=== PATIENT | female | born 1955 | race Caucasian/White ===

== ENCOUNTER 2016-12-30 17:21 | Emergency (ER) | payer MEDICAID ==
--- NOTE | 2016-12-30 18:01 | EDM.PDOC ---
ED HPI GENERAL MEDICAL PROBLEM - General Chief Complaint: General Stated Complaint: sob Time Seen by Provider: 12/30/16 17:33 Source of Information: Reports: Patient, EMS - History of Present Illness INITIAL COMMENTS - FREE TEXT/NARRATIVE: Patient presents to ER by ambulance stating she has severe nasal congestion, got hot and became sob for a few minutes. she denies sob now and states she still has nasal congestion. 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 - Related Data Allergies Allergy/AdvReac Type Severity Reaction Status Date / Time cephalexin Allergy Itching Verified 04/26/16 14:43 Home Meds: Home Meds FLUoxetine [PROzac] 20 mg PO BEDTIME 10/12/15 [History] Lisinopril [Zestril] 40 mg PO DAILY 10/12/15 [History] Lovastatin 20 mg PO DAILY 10/12/15 [History] Metoprolol Tartrate [Lopressor] 50 mg PO BEDTIME 10/12/15 [History] Omeprazole 20 mg PO DAILY 10/12/15 [History] Warfarin [Coumadin] 4 mg PO DAILY 10/12/15 [History] metFORMIN HCl [Metformin HCl] 1,000 mg PO BID 10/12/15 [History] Amoxicillin/Clavulanate K [Augmentin 875 MG/125 MG] 1 tab PO Q12HR #20 tablet [Rx] Ferrous Sulfate [Iron] 325 mg PO BID #60 tablet 04/29/16 [Rx] Past Medical History Cardiovascular History: Reports: High Cholesterol, Hypertension Genitourinary History: Reports: Renal Calculus Endocrine/Metabolic History: Reports: Diabetes, Type II - Past Surgical History HEENT Surgical History: Reports: Tonsillectomy GI Surgical History: Reports: Cholecystectomy Female Surgical History: Reports: Hysterectomy, Kidney stone extraction, Oophorectomy Social & Family History - Family History Family Medical History: Noncontributory Cardiac: Reports: CAD, Hypertension Endocrine/Metabolic: Reports: Diabetes, type II - Tobacco Use Smoking Status *Q: Current Every Day Smoker Years of Tobacco use: 40 Packs/Tins Daily: 0.5 - Living Situation & Occupation Living situation: Reports: with Family ED ROS GENERAL - Review of Systems Review Of Systems: ROS reveals no pertinent complaints other than HPI. ED EXAM, GENERAL - Physical Exam Exam: See Below Free Text/Narrative:: I find no abnormalities ENT, and BBS are clear. She is a-febrile and has no real complaints at this time. Exam Limited By: No Limitations General Appearance: Alert, WD/WN Ears: Normal External Exam, Normal Canal, Normal TMs Nose: Normal Inspection Throat/Mouth: Normal Inspection Head: Atraumatic Neck: Normal Inspection Respiratory/Chest: No Respiratory Distress, Lungs Clear, Normal Breath Sounds Cardiovascular: Normal Peripheral Pulses GI/Abdominal: Normal Bowel Sounds Back Exam: Normal Inspection Extremities: Normal Inspection Neurological: Alert, Oriented Skin Exam: Warm, Dry Course - Vital Signs Last Recorded V/S: Last Vital Signs Temp 98.9 F 12/30/16 17:33 Pulse 88 12/30/16 17:33 Resp 20 12/30/16 17:33 BP 158/85 H 12/30/16 17:33 Pulse Ox 96 12/30/16 17:33 Departure - Departure Time of Disposition: 18:00 Disposition: Home, Self-Care 01 Condition: Good Clinical Impression: Nasal sinus congestion - Discharge Information Forms: ED Department Discharge Additional Instructions: Take medications as prescribed, follow up with your regular doctor Monday as needed.
== END 2016-12-30 18:21 | disposition home or self-care (01) ==
LOC: CC.ED 17:21
CPT/HCPCS: 99284

== ENCOUNTER 2017-03-19 07:48 | Observation (INO) | payer MEDICAID ==
[2017-03-19] MEDS ORDERED: fentaNYL 100 MCG/2 ML SDV IM ONE (08:08)
--- NOTE | 2017-03-19 08:46 | EDM.PDOC ---
ED HPI GENERAL MEDICAL PROBLEM - General Chief Complaint: Genitourinary Problem Stated Complaint: right flank pain Time Seen by Provider: 03/19/17 08:28 Source of Information: Reports: Patient History Limitations: Reports: No Limitations - History of Present Illness INITIAL COMMENTS - FREE TEXT/NARRATIVE: Patient presents with right flank pain that radiate to the right lower quadrant. Describes as a burning sensation. Started yesterday afternoon in the flank area but now has radiated. She has a history of kidney stones but states the pain was more localized in to one place at that time. Mild nausea and dry heaves. Denies burning with urination, no hematuria. Denies diarrhea or constipation. Has had a cold recently, coughing at times. No fevers. Mild sinus congestion and chest congestion. No shortness of breath or chest pain. Onset: Gradual Duration: Day(s):, Colic, Getting Worse Location: Reports: Abdomen Quality: Reports: Burning Severity: Severe Associated Symptoms: Reports: Cough, Nausea/Vomiting. Denies: Chest Pain, Fever /Chills, Loss of Appetite, Shortness of Breath Right Flank Pain Score (Numeric/FACES): 10 - Related Data Allergies Allergy/AdvReac Type Severity Reaction Status Date / Time cephalexin Allergy Itching Verified 03/19/17 07:53 Home Meds: Home Meds FLUoxetine [PROzac] 40 mg PO BEDTIME 10/12/15 [History] Lisinopril [Zestril] 40 mg PO DAILY 10/12/15 [History] Lovastatin 20 mg PO DAILY 10/12/15 [History] Metoprolol Tartrate [Lopressor] 50 mg PO BEDTIME 10/12/15 [History] Omeprazole 20 mg PO DAILY 10/12/15 [History] Warfarin [Coumadin] 4 mg PO DAILY 10/12/15 [History] metFORMIN HCl [Metformin HCl] 1,000 mg PO BID 10/12/15 [History] Ferrous Sulfate [Iron] 325 mg PO BID #60 tablet 04/29/16 [Rx] Enoxaparin Sodium [Lovenox] 150 mg SUBCUT BID 03/19/17 [History] Hydrocortisone 5 mg PO 1400 03/19/17 [History] Hydrocortisone 10 mg PO DAILY 03/19/17 [History] Levothyroxine 75 mcg PO DAILY 03/19/17 [History] amLODIPine [Norvasc] 5 mg PO DAILY 03/19/17 [History] glipiZIDE [Glucotrol XL] 5 mg PO DAILY 03/19/17 [History] guaiFENesin/Codeine Phosphate [Cheratussin AC Syrup] 5 - 10 ml PO Q6H PRN [History] Past Medical History Cardiovascular History: Reports: High Cholesterol, Hypertension Genitourinary History: Reports: Renal Calculus Endocrine/Metabolic History: Reports: Diabetes, Type II - Past Surgical History HEENT Surgical History: Reports: Tonsillectomy GI Surgical History: Reports: Cholecystectomy Female Surgical History: Reports: Hysterectomy, Kidney stone extraction, Oophorectomy Social & Family History - Family History Family Medical History: Noncontributory Cardiac: Reports: CAD, Hypertension Endocrine/Metabolic: Reports: Diabetes, type II - Tobacco Use Smoking Status *Q: Never Smoker Years of Tobacco use: 40 Packs/Tins Daily: 0.5 - Caffeine Use Caffeine Use: Reports: None - Living Situation & Occupation Living situation: Reports: with Family ED ROS GENERAL - Review of Systems Review Of Systems: See Below Constitutional: Denies: Fever, Chills, Malaise, Weakness, Decreased Appetite HEENT: Reports: Rhinitis. Denies: Ear Pain, Throat Pain Respiratory: Reports: Pleuritic Chest Pain, Cough. Denies: Shortness of Breath Cardiovascular: Reports: Edema. Denies: Chest Pain, Lightheadedness Endocrine: Reports: Fatigue GI/Abdominal: Reports: Abdominal Pain, Nausea. Denies: Constipation, Diarrhea, Vomiting : Reports: Flank Pain. Denies: Hematuria Musculoskeletal: Reports: No Symptoms Skin: Reports: Erythema (to skin folds, has cream to put in them) Neurological: Reports: No Symptoms ED EXAM, GI/ABD - Physical Exam Exam: See Below Exam Limited By: No Limitations General Appearance: Alert, WD/WN, Mild Distress Ears: Normal External Exam, Normal TMs Nose: Normal Inspection, Nasal Drainage Throat/Mouth: Normal Inspection, Normal Oropharynx Head: Normocephalic Neck: Normal Inspection, Supple, Non-Tender Respiratory/Chest: No Respiratory Distress, Lungs Clear Cardiovascular: Irregularly Irregular GI/Abdominal Exam: Normal Bowel Sounds, Soft, Tender (RLQ) Extremities: Redness (to left leg skin fold, moist) Neurological: Alert, Oriented Psychiatric: Normal Affect, Normal Mood Skin Exam: Warm, Dry Course - Vital Signs Last Recorded V/S: Last Vital Signs Temp 97.0 F 03/19/17 07:51 Pulse 98 03/19/17 07:51 Resp 20 03/19/17 07:51 BP 105/56 L 03/19/17 07:51 Pulse Ox 96 03/19/17 07:51 - Orders/Labs/Meds Orders: Active Orders 24 hr Category Date Time Status Abdomen Pelvis wo Cont [CT] Stat Exams 03/19/17 10:12 Taken CULTURE URINE [RM] Stat Lab 03/19/17 10:16 Received Sodium Chloride 0.45% 1,000 ml Med 03/19/17 09:15 Active IV ASDIRECTED Medication Orders Sodium Chloride (Sodium Chloride 0.45%) 1,000 mls @ 150 mls/hr IV ASDIRECTED ANTONIO Labs: Laboratory Tests 03/19/17 03/19/17 03/19/17 Range/Units 09:52 09:56 10:16 WBC 15.8 H (5.0-10.0) 10^3/uL RBC 4.34 (4.00-5.50) 10^6/uL Hgb 11.0 L (12.0-16.0) g/dL Hct 37.6 (37.0-47.0) % MCV 86.6 (82.0-94.0) fL MCH 25.3 L (27.0-32.0) pg MCHC 29.3 L (33.0-38.0) g/dL RDW Coeff of Jaron 18.1 H (11.0-15.0) % Plt Count 413 H (150-400) 10^3/uL Add Manual Diff Yes Neutrophils % (Manual) 76 (35-85) % Band Neutrophils % 5 (0-5) % Lymphocytes % (Manual) 13 L (21-55) % Monocytes % (Manual) 5 (2-12) % Eosinophils % (Manual) 1 (0-5) % Absolute Neutrophils 12.80 H (1.80-7.00) 10^3/uL Lymphocytes # (Manual) 2.05 (1.00-4.80) 10^3/uL Monocytes # (Manual) 0.79 (0.00-0.80) 10^3/uL Eosinophils # (Manual) 0.16 (0.00-0.45) 10^3/uL Sodium 140 (136-145) mEq/L Potassium 4.1 (3.5-5.0) mEq/L Chloride 101 (98-106) mEq/L Carbon Dioxide 28 (21-32) mmol/L BUN 13 (7-18) mg/dL Creatinine 1.4 H D (0.6-1.0) mg/dL Est Cr Clr Drug Dosing 42.98 mL/min Estimated GFR (MDRD) 38 L (>=60) mL/min Glucose 260 H (75-99) mg/dL Calcium 9.0 (8.4-10.1) mg/dL Total Bilirubin 0.7 (0.0-1.0) mg/dL AST 23 (15-37) U/L ALT 40 (12-78) U/L Alkaline Phosphatase 103 (46-116) U/L C-Reactive Protein 1.7 H (0.2-0.8) mg/dL Total Protein 7.5 (6.4-8.2) g/dL Albumin 3.0 L (3.4-5.0) g/dL Amylase 27 (25-115) U/L Urine Color Dark yellow (YELLOW) Urine Appearance Clear (CLEAR) Urine pH 5.5 (4.5-8.0) Ur Specific [place] >= 1.030 H (1.003-1.020) Urine Protein >=300 H (NEGATIVE) mg/dL Urine Glucose (UA) 100 H (NEGATIVE) mg/dL Urine Ketones Trace H (NEGATIVE) mg/dL Urine Occult Blood Moderate H (NEGATIVE) Urine Nitrite Positive H (NEGATIVE) Urine Bilirubin Small H (NEGATIVE) Urine Urobilinogen 1.0 (0.2-1.0) EU/dL Ur Leukocyte Esterase Small H (NEGATIVE) Meds: Medications Generic Name Dose Route Start Last Admin Trade Name Freq PRN Reason Stop Dose Admin Sodium Chloride 1,000 mls @ 150 mls/hr 03/19/17 09:15 Sodium Chloride 0.45% IV ASDIRECTED ANTONIO Discontinued Medications Generic Name Dose Route Start Last Admin Trade Name Freq PRN Reason Stop Dose Admin Fentanyl 50 mcg 03/19/17 08:08 03/19/17 08:11 Sublimaze IM 03/19/17 08:09 50 mcg ONETIME ONE Administration Fentanyl 50 mcg 03/19/17 09:24 03/19/17 09:41 Sublimaze IVPUSH 03/19/17 09:25 50 mcg ONETIME ONE Administration - Re-Assessments/Exams Free Text/Narrative Re-Assessment/Exam: 03/19/17 11:23 Patient's labs reviewed. WBC elevated, CRP 1.7. Urine positive. Still having complaints of significant pain at times. Will admit for IV fluids, pain meds and antibiotics. Still awaiting CT report to rule out stone due to hematuria and pain. Departure - Departure Time of Disposition: 11:24 Disposition: Refer to Observation Condition: Fair Clinical Impression: Pyelonephritis - Discharge Information Forms: ED Department Discharge - Problem List & Annotations (1) Pyelonephritis SNOMED Code(s): 74200415 Code(s): N12 - TUBULO-INTERSTITIAL NEPHRITIS, NOT SPCF ACUTE OR CHRONIC Status: Acute Priority: High Current Visit: Yes - Problem List Review Problem List Initiated/Reviewed/Updated: Yes - My Orders Last 24 Hours: My Active Orders 03/19/17 09:15 Sodium Chloride 0.45% 1,000 ml IV ASDIRECTED 03/19/17 10:12 Abdomen Pelvis wo Cont [CT] Stat 03/19/17 10:16 CULTURE URINE [RM] Stat - Assessment/Plan Admission H&P: Please use this note as an admission H&P Last 24 Hours: My Active Orders 03/19/17 09:15 Sodium Chloride 0.45% 1,000 ml IV ASDIRECTED 03/19/17 10:12 Abdomen Pelvis wo Cont [CT] Stat 03/19/17 10:16 CULTURE URINE [RM] Stat Assessment:: Pyelonephritis Plan: ADmit observation to Dr. Zhang for pyelonephritis. Start IV Levaquin and fluids. Pain meds.
[2017-03-19] MEDS ORDERED: Sodium Chloride 0.45% 1,000 ML IV SCH (09:15)
[2017-03-19] MEDS ORDERED: fentaNYL 100 MCG/2 ML SDV IVPUSH ONE (09:24)
[2017-03-19] MEDS ORDERED: Ondansetron 4 MG/2 ML SDV IV PRN (11:37)
[2017-03-19] MEDS ORDERED: Ondansetron 4 MG Tab.DIS PO PRN (11:37)
[2017-03-19] MEDS ORDERED: fentaNYL 100 MCG/2 ML SDV IVPUSH PRN (11:37)
[2017-03-19] MEDS ORDERED: Sodium Chloride 0.9% 10 ML Syringe FLUSH PRN (11:37)
[2017-03-19] MEDS ORDERED: Temazepam 15 MG Cap PO PRN (11:37)
[2017-03-19] MEDS ORDERED: Acetaminophen/HYDROcodone 325-5 MG Tab PO PRN (11:37)
[2017-03-19] MEDS ORDERED: glipiZIDE 5 MG Tab.ER PO SCH (11:45)
[2017-03-19] MEDS ORDERED: amLODIPine 2.5 MG Tab PO SCH (12:00)
[2017-03-19] MEDS ORDERED: Ferrous Sulfate 324 MG Tab.EC PO SCH (12:00)
[2017-03-19] MEDS ORDERED: Pantoprazole 40 MG Vial IVPUSH SCH (12:00)
[2017-03-19] MEDS ORDERED: Levofloxacin/Dextrose 5%-Water 500 MG in Premix Bag 1 BAG IV SCH (12:00)
[2017-03-19] MEDS ORDERED: Levothyroxine 50 MCG Tab PO SCH (12:00)
[2017-03-19] MEDS ORDERED: fentaNYL 100 MCG/2 ML SDV ONE (12:09)
[2017-03-19] MEDS ORDERED: Lisinopril 20 MG Tab PO SCH (12:15)
[2017-03-19] MEDS ORDERED: Hydrocortisone 20 MG Tab PO SCH ×2 (12:15→14:00)
[2017-03-19 12:32] VITALS: BP 153/73
[2017-03-19] MEDS ORDERED: metFORMIN 500 MG Tab PO SCH (17:30)
[2017-03-19] MEDS ORDERED: FLUoxetine 20 MG Cap PO SCH (20:00)
[2017-03-19] MEDS ORDERED: Enoxaparin 80 MG/0.8 ML Syringe SUBCUT SCH (20:00)
[2017-03-19] MEDS ORDERED: Metoprolol Tartrate 50 MG Tab PO SCH (20:00)
[2017-03-19] MEDS ORDERED: Simvastatin 10 MG Tab PO SCH (20:00)
--- NOTE | 2017-03-20 19:57 | PCM.DCSUM1 ---
Discharge Summary - Hospital Course Free Text/Narrative:: Patient was admitted from ED due for right flank pain/abdominal pain. UA was positive, WBC elevated at 15.9. CT scan done upon admit due to hematuria and known history of kidney stones. Patient had been experiencing pain in the right flank and right lower quadrant, describes as burning. She had been nauseated, no vomiting. Admits to burning with urination. ADmitted for IV antibiotics and fluids. Currently on high dose Lovenox as Coumadin was held to prepare for a thyroid biopsy. - Discharge Data Discharge Date: 03/19/17 Discharge Disposition: DC/Tfer to Acute Hospital 02 Condition: Undetermined - Discharge Diagnosis/Problem(s) (1) Pyelonephritis SNOMED Code(s): 00468539 ICD Code: N12 - TUBULO-INTERSTITIAL NEPHRITIS, NOT SPCF ACUTE OR CHRONIC Status: Acute Priority: High (2) Intra-abdominal hematoma SNOMED Code(s): 345771600 ICD Code: S36.92XA - CONTUSION OF UNSPECIFIED INTRA-ABDOMINAL ORGAN, INIT ENCNTR Status: Acute Priority: High Qualifiers: Encounter type: initial encounter Qualified Code(s): S36.92XA - Contusion of unspecified intra-abdominal organ, initial encounter - Patient Summary/Data Complications: CT report showed a large hematoma to the rectus muscle sheath extending down to the pelvis. Hospital Course: Admitted to observation. Received radiology read that showed a large hematoma in the rectus sheath extending to the pelvis. She had been giving herself Lovenox shots while holding her Coumadin for a thyroid biopsy. Did contact surgeon at [facility] who accepted patient for surgical evaluation, monitoring of the bleed and [employer] pain meds. - Discharge Plan Home Medications: Home Meds FLUoxetine [PROzac] 40 mg PO BEDTIME 10/12/15 [History] Lisinopril [Zestril] 40 mg PO DAILY 10/12/15 [History] Lovastatin 20 mg PO DAILY 10/12/15 [History] Metoprolol Tartrate [Lopressor] 50 mg PO BEDTIME 10/12/15 [History] Omeprazole 20 mg PO DAILY 10/12/15 [History] Warfarin [Coumadin] 4 mg PO DAILY 10/12/15 [History] metFORMIN HCl [Metformin HCl] 1,000 mg PO BID 10/12/15 [History] Ferrous Sulfate [Iron] 325 mg PO BID #60 tablet 04/29/16 [Rx] Enoxaparin Sodium [Lovenox] 150 mg SUBCUT BID 03/19/17 [History] Hydrocortisone 5 mg PO 1400 03/19/17 [History] Hydrocortisone 10 mg PO DAILY 03/19/17 [History] Levothyroxine 75 mcg PO DAILY 03/19/17 [History] amLODIPine [Norvasc] 5 mg PO DAILY 03/19/17 [History] glipiZIDE [Glucotrol XL] 5 mg PO DAILY 03/19/17 [History] guaiFENesin/Codeine Phosphate [Cheratussin AC Syrup] 5 - 10 ml PO Q6H PRN [History] Forms: ED Department Discharge Referrals: Raffaele Ortiz PA-C [Family Provider] - - Discharge Summary/Plan Comment DC Time >30 min.: Yes Discharge Summary/Plan Comment: Transfer ALS to [facility] for surgical evaluation. - General Info Date of Service: 03/20/17 Admission Dx/Problem (Free Text: Hematoma to RLQ rectus sheath Functional Status: Denies: Pain Controlled (ongoing fentanyl given) - Review of Systems General: Reports: Fatigue. Denies: Fever HEENT: Reports: No Symptoms Pulmonary: Reports: Cough. Denies: Shortness of Breath Cardiovascular: Reports: Edema. Denies: Chest Pain, Lightheadedness Gastrointestinal: Reports: Abdominal Pain, Nausea. Denies: Vomiting Genitourinary: Reports: No Symptoms Musculoskeletal: Reports: No Symptoms Skin: Reports: Other (redness noted to left leg fold with moisture and odor noted.) Neurological: Reports: No Symptoms - Patient Data Vitals - Most Recent: Last Vital Signs Temp 98.3 F 03/19/17 11:37 Pulse 87 03/19/17 11:37 Resp 20 03/19/17 11:37 BP 153/73 H 03/19/17 11:37 Pulse Ox 94 L 03/19/17 11:37 Weight - Most Recent: 359 lb 11.2 oz Med Orders - Current: Current Medications Discontinued Medications Hydrocodone Bitart/Acetaminophen ([place] 325-5 Mg) 2 tab PO Q4H PRN PRN Reason: Pain (moderate 4-6) Amlodipine Besylate (Norvasc) 5 mg PO DAILY [facility] Enoxaparin Sodium (Lovenox) 150 mg SUBCUT BID [facility] Fentanyl (Sublimaze) 50 mcg IM ONETIME ONE Stop: 03/19/17 08:09 Last Admin: 03/19/17 08:11 Dose: 50 mcg Fentanyl (Sublimaze) 50 mcg IVPUSH ONETIME ONE Stop: 03/19/17 09:25 Last Admin: 03/19/17 09:41 Dose: 50 mcg Fentanyl (Sublimaze) 25 mcg IVPUSH Q2H PRN PRN Reason: Pain Last Admin: 03/19/17 12:03 Dose: 25 mcg Fentanyl (Sublimaze) Confirm Administered Dose 100 mcg .ROUTE .STK-MED ONE Stop: 03/19/17 12:10 Last Admin: 03/19/17 12:14 Dose: Not Given Ferrous Sulfate (Ferrous Sulfate) 324 mg PO BID [facility] Fluoxetine HCl (Prozac) 40 mg PO BEDTIME [facility] Glipizide (Glucotrol Xl) 5 mg PO DAILY [facility] Hydrocortisone (Cortef) 5 mg PO DAILY@1400 ANTONIO Hydrocortisone (Cortef) 10 mg PO DAILY [facility] Sodium Chloride (Sodium Chloride 0.45%) 1,000 mls @ 150 mls/hr IV ASDIRECTED ANTONIO Last Admin: 03/19/17 12:04 Dose: 150 mls/hr Levofloxacin/Dextrose 500 mg/ (Premix) 100 mls @ 100 mls/hr IV Q24H [facility] Levothyroxine Sodium (Synthroid) 75 mcg PO ACBREAKFAST [facility] Lisinopril (Prinivil) 40 mg PO DAILY [facility] Metformin HCl (Glucophage) 1,000 mg PO BIDMEALS [facility] Metoprolol Tartrate (Lopressor) 50 mg PO BEDTIME [facility] Ondansetron HCl (Zofran) 4 mg IV Q4H PRN PRN Reason: Nausea/Vomiting Ondansetron HCl (Zofran Odt) 4 mg PO Q4H PRN PRN Reason: nausea, able to take PO Pantoprazole Sodium (Protonix Iv) 40 mg IVPUSH Q24H [facility] Simvastatin (Zocor) 10 mg PO BEDTIME [facility] Sodium Chloride (Saline Flush) 10 ml FLUSH ASDIRECTED PRN PRN Reason: Keep Vein Open Temazepam (Restoril) 15 mg PO BEDTIME PRN PRN Reason: Sleep - Exam General: Reports: Alert, Oriented HEENT: Reports: Mucous Membr. Moist/[place] Neck: Reports: Supple Lungs: Reports: Clear to Auscultation, Normal Respiratory Effort Cardiovascular: Reports: Irregular Rhythm GI/Abdominal Exam: Normal Bowel Sounds, Soft, Tender (RLQ) *Q Meaningful Use (DIS) - VTE *Q VTE Criteria *Q: - Stroke *Q Stroke Criteria *Q: - AMI *Q AMI Criteria *Q:
== END 2017-03-19 12:30 ==
LOC: CC.ED 07:48 → UNDOADMOB 11:25 → CC.MS 11:25
PROVIDERS: ADMIT Physician Assistant Medical; ATTEND Family Medicine
DX: N12 Tubulo-interstitial nephritis, not specified as acute or chronic (principal); S36.92XA Contusion of unspecified intra-abdominal organ, initial encounter; I10 Essential (primary) hypertension; E78.00 Pure hypercholesterolemia, unspecified; E11.9 Type 2 diabetes mellitus without complications; K21.9 Gastro-esophageal reflux disease without esophagitis; F41.9 Anxiety disorder, unspecified; F32.9 Major depressive disorder, single episode, unspecified; Z79.01 Long term (current) use of anticoagulants; Z79.84 Long term (current) use of oral hypoglycemic drugs; Z79.899 Other long term (current) drug therapy; Z88.1 Allergy status to other antibiotic agents; Z90.49 Acquired absence of other specified parts of digestive tract; Z90.710 Acquired absence of both cervix and uterus; Z98.890 Other specified postprocedural states; Z98.51 Tubal ligation status; X58.XXXA Exposure to other specified factors, initial encounter
CPT/HCPCS: 36415; 74176; 80053; 81003; 82150; 85025; 86140; 87086; 87088; 87186; 96372; 96374; 96376; 99285; G0378; J3010; J7030